=== PATIENT | female | born 1985 | race Caucasian/White ===

== ENCOUNTER 2022-04-08 13:06 | Emergency (ER) | payer BC, SELFPAY ==
--- NOTE | 2022-04-08 14:59 | RAD REPORT ---
EXAM DESCRIPTION: RAD - Mandible <4 Views - 04/08/2022 1:49 pm CLINICAL HISTORY: Left mandibular pain FINDINGS: No fracture or dislocation seen. If patient continues to have symptoms to suggest TMJ pathology nonemergent MRI could be obtained
--- NOTE | 2022-04-08 15:06 | ER ---
Nurse's Notes [facility] Name: Robyn Cardenas Age: 37 yrs Sex: Female : 1985 Arrival Date: 04/08/2022 Time: 13:06 Bed IW1 Private MD: Diagnosis: Temporomandibular joint disorder, unspecified Presentation: 04/08 13:25 Chief complaint: Patient states: I was yawning and I thinkg I dislocated my jaw; it 5 hurts really bad. I have TMJ. Coronavirus screen: Vaccine status: Patient reports being unvaccinated. Client denies travel out of the [place] in the last 14 days. Ebola Screen: Patient negative for fever greater than or equal to 101.5 degrees Fahrenheit, and additional compatible Ebola Virus Disease symptoms Patient denies exposure to infectious person. Patient denies travel to an Ebola-affected area in the 21 days before illness onset. Initial Sepsis Screen: Does the patient meet any 2 criteria? No. Patient's initial sepsis screen is negative. Does the patient have a suspected source of infection? No. Patient's initial sepsis screen is negative. Risk Assessment: Do you want to hurt yourself or someone else? Patient reports no desire to harm self or others. Onset of symptoms was March 2022. 13:25 Method Of Arrival: Ambulatory [facility] 13:25 Acuity: DAVINA 3 jh5 Triage Assessment: 13:28 General: Appears uncomfortable, well groomed, well developed, well nourished, Behavior [facility] is calm, cooperative, appropriate for age. Pain: Complains of pain in JAW. 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 - Social history:: Smoking status: Patient reports the use of cigarette tobacco products, smokes one-half pack cigarettes per day. - Family history:: not pertinent. - Hospitalizations: : No recent hospitalization is reported. Vital Signs: 13:25 BP 138 / 94; Pulse 82; Resp 16; Temp 98.6; Pulse Ox 100% ; Weight 65.77 kg; Height 5 jh5 ft. 1 in. (154.94 cm); Pain 8/10; 13:25 Body Mass Index 27.40 (65.77 kg, 154.94 cm) [facility] ED Course: 13:06 Patient arrived in ED. am2 13:26 Sincere Cortez MD is Attending Physician. rn 13:28 Triage completed. [facility] 13:28 Arm band placed on right wrist. [facility] 13:51 XRAY Mandible <4 Views In Process Unspecified. EDMS Administered Medications: No medications were administered Outcome: 15:06 Discharge ordered by . rn 15:38 Patient left the ED. zm Signatures: Dispatcher [employer] EDMS Sincere Cortez MD MD rn Moreno, Amanda [facility] Aleksandra Nava RN RN [facility] Katrin Perez
--- NOTE | 2022-04-08 15:06 | EDPHYS ---
Physician Documentation [facility] Name: Robyn Cardenas Age: 37 yrs Sex: Female : 1985 Arrival Date: 04/08/2022 Time: 13:06 Bed IW1 Private MD: ED Physician Sincere Cortez HPI: 04/08 14:10 This 37 yrs old Female presents to ER via Ambulatory with complaints of Jaw Pain. rn 14:10 The patient or guardian reports pain. The complaints affect the left TMJ. Onset: The rn symptoms/episode began/occurred today. Associated signs and symptoms: Loss of consciousness: This patient did not experience any loss of consciousness. Pertinent negatives: headache, seizure. Severity of symptoms: At their worst the symptoms were mild, in the emergency department the symptoms are unchanged. The patient has not recently seen a physician. Pt reports left jaw pain after yawning, has had problems with TMJ dysfunction in past. No trauma today. Can open and close mouth but "doesn't feel right".. 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 - Social history:: Smoking status: Patient reports the use of cigarette tobacco products, smokes one-half pack cigarettes per day. - Family history:: not pertinent. - Hospitalizations: : No recent hospitalization is reported. ROS: 14:10 Constitutional: Negative for fever, chills, and weight loss, Eyes: Negative for injury, rn pain, redness, and discharge, ENT: + left jaw pain Cardiovascular: Negative for chest pain, palpitations, and edema, Respiratory: Negative for shortness of breath, cough, wheezing, and pleuritic chest pain, Neuro: Negative for headache, weakness, numbness, tingling, and seizure. Exam: 14:10 Constitutional: This is a well developed, well nourished patient who is awake, alert, rn and in no acute distress. Head/Face: Normocephalic, atraumatic. ENT: NO trismus, able to open and close mouth fully but with mild discomfort, no gross dislocation evident, speaking full sentences. No swelling or deformity noted. Vital Signs: 13:25 BP 138 / 94; Pulse 82; Resp 16; Temp 98.6; Pulse Ox 100% ; Weight 65.77 kg; Height 5 jh5 ft. 1 in. (154.94 cm); Pain 8/10; 13:25 Body Mass Index 27.40 (65.77 kg, 154.94 cm) jh5 MDM: 13:26 Patient medically screened. rn 15:05 Differential diagnosis: sprain, TMJ pain, dislocation. Data reviewed: vital signs, rn nurses notes, radiologic studies, plain films, and as a result, I will discharge patient. Counseling: I had a detailed discussion with the patient and/or guardian regarding: the historical points, exam findings, and any diagnostic results supporting the discharge/admit diagnosis, radiology results, the need for outpatient follow up, to return to the emergency department if symptoms worsen or persist or if there are any questions or concerns that arise at home. Special discussion: I discussed with the patient/guardian in detail that at this point there is no indication for admission to the hospital. It is understood, however, that if the symptoms persist or worsen the patient needs to return immediately for re-evaluation. Based on the history and exam findings, there is no indication for further emergent testing or inpatient evaluation. I discussed with the patient/guardian the need to see the ENT specialist for further evaluation of the symptoms. I discussed with the patient/guardian the need to see the primary care provider for further evaluation of the symptoms. ED course: Xray neg for dislocation/fracture, no trismus, will dc home with OTC meds and return precautions. . 04/08 13:31 Order name: XRAY Mandible <4 Views; Complete Time: 15:04 rn Administered Medications: No medications were administered Disposition Summary: 04/08/22 15:06 Discharge Ordered Location: Home rn Problem: new rn Symptoms: have improved rn Condition: Stable rn Diagnosis - Temporomandibular joint disorder, unspecified rn Followup: rn - With: Private Physician - When: As needed - Reason: Recheck today's complaints, Re-evaluation by your physician Discharge Instructions: - Discharge Summary Sheet rn - Temporomandibular Joint Syndrome rn Forms: - Medication Reconciliation Form rn - Thank You Letter rn - Antibiotic 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
[2022-04-08 15:50] VITALS: BP 138/94; TEMP 98.6; O2SAT 100
== END 2022-04-08 15:38 | disposition home or self-care (01) ==
LOC: ER 13:06
DX: M26.602 Left temporomandibular joint disorder, unspecified (principal)
CPT/HCPCS: 70100; 99282